=== PATIENT | female | born 1995 | race Caucasian/White ===

== ENCOUNTER 2016-02-26 16:35 | Emergency (ER) | payer SELFPAY ==
[2016-02-26 16:42] VITALS: BP 101/53; PULSE 95; TEMP 99.4; BMI 21.4
[2016-02-26] MEDS ORDERED: ONDANSETRON 4 MG/2 ML VIAL IVPB ONE (18:01)
[2016-02-26] MEDS ORDERED: SODIUM CHLORIDE 1,000 ML IV STA (18:01)
[2016-02-26] MEDS ORDERED: ONDANSETRON 4 MG/2 ML VIAL ONE (18:07)
[2016-02-26 18:12] LABS: PH,URINE >= 9.0 (4.5-8); URINE APPEARANCE Clear; URINE BILIRUBIN 1+ (NEGATIVE); URINE BLOOD Negative (NEGATIVE); URINE GLUCOSE (UA) Negative (NEGATIVE); URINE KETONE 2+ (NEGATIVE); URINE LEUK ESTERASE Negative (NEGATIVE); URINE NITRITE Negative (NEGATIVE); URINE UROBILINOGEN 0.2 E.U/dl (0.2-1.0)
[2016-02-26 18:22] LABS: URINE COLOR YELLOW; URINE PROTEIN 2+ (NEGATIVE)
[2016-02-26 18:32] LABS: BASOPHIL 0.1 % (0-2.0); EOSINOPHIL 0.7 % (0-4.5); MCHC 33.6 g/dl (32.0-36.0); MEAN CELL VOLUME 89.2 fl (80-96); NEUTROPHILS 88.4 % (42.8-82.8); PLATELET COUNT 102 K/MM3 (134-434); RDW 12.2 % (11.6-15.6); WHITE BLOOD COUNT 7.2 K/mm3 (4.0-10.0)
--- NOTE | 2016-02-26 18:40 | PDOC ---
History of Present Illness - General Chief Complaint: Vomiting/Diarrhea Stated Complaint: VOMITING, DIARRHEA Time Seen by Provider: 02/26/16 17:50 - History of Present Illness Initial Comments: 03/02/16 08:37 Chief complaint: Nausea vomiting and diarrhea History of present illness. Present symptoms since this morning. No hematemesis melena or bloody stool Review of systems: Otherwise negative Past medical history: Healthy female, no significant medical or surgical problems. No home medications Social/family history reviewed and noncontributory Physical exam: Alert and oriented 3, well-developed well-nourished, no acute distress. No retching or vomiting at present Afebrile, vital signs normal HEENT WNL Neck without bruit mass or nodes Chest clear CV regular without murmur rub or gallop. Mild tachycardia Abdomen nondistended. Bowel sounds normal. Soft without mass tenderness or organomegaly. Skin clear, no rash, adequate turgor and mucous membranes. No pallor or icterus. Impression: Mild viral gastroenteritis Plan: IV fluids, antiemetics, antidiarrheals as needed. Observe and monitor. Past History - Past Medical History Allergies/Adverse Reactions: Allergies Allergy/AdvReac Type Severity Reaction Status Date / Time No Known Allergies Allergy Verified 02/26/16 16:38 Home Medications: Ambulatory Orders Ondansetron [Zofran Odt -] 4 mg SL TID PRN #10 od.tablet 02/26/16 Other medical history: DENIES - Psycho/Social/Smoking Cessation Hx Anxiety: No Suicidal Ideation: No Smoking History: Never smoked Hx Alcohol Use: Yes (occasional) *Physical Exam - Vital Signs Last Vital Signs Temp Pulse Resp BP Pulse Ox 99.4 F 95 H 18 101/53 100 02/26/16 16:35 02/26/16 16:35 02/26/16 16:35 02/26/16 16:35 02/26/16 16:35 ED Treatment Course - LABORATORY CBC & Chemistry Diagram: 02/26/16 18:00 02/26/16 18:00 - ADDITIONAL ORDERS Additional order review: Laboratory Results 02/26/16 18:00 Urine Color Yellow Urine Appearance Clear Urine pH >= 9.0 H Ur Specific [place] 1.015 Urine Protein 2+ H Urine Glucose (UA) Negative Urine Ketones 2+ H Urine Blood Negative Urine Nitrite Negative Urine Bilirubin 1+ H Urine Urobilinogen 0.2 e.u/dl Ur Leukocyte Esterase Negative Urine HCG, Qual Negative 02/26/16 18:00 RBC 4.26 MCV 89.2 MCHC 33.6 RDW 12.2 MPV 12.0 H Neutrophils % 88.4 H Lymphocytes % 5.9 L Monocytes % 4.9 Eosinophils % 0.7 Basophils % 0.1 - Medications Given in the ED: ED Medications Discontinued Medications Generic Name Dose Route Start Last Admin Trade Name Freq PRN Reason Stop Dose Admin Ondansetron HCl 4 mg 02/26/16 18:01 02/26/16 18:05 Zofran Injection IVPB 02/26/16 18:02 4 mg ONCE ONE Administration Medical Decision Making - Medical Decision Making 02/26/16 18:56 CBC, urinalysis and urine test without significant abnormalities except for mildly depressed platelet count of 102,000. This is probably due to the viral illness. The patient has responded well to intravenous fluids and Zofran. No further nausea or vomiting. No diarrhea. Discharged in the company of her family in no pain or other distress to follow-up as needed. 03/02/16 08:39 *DC/Admit/Observation/Transfer Diagnosis at time of Disposition: Viral gastroenteritis - Discharge Dispostion Disposition: HOME Condition at time of disposition: Stable Admit: No - Prescriptions Prescriptions: Ondansetron [Zofran Odt -] 4 mg SL TID PRN #10 od.tablet PRN Reason: Nausea And/Or Vomiting - Patient Instructions Printed Discharge Instructions: DI for Viral Gastroenteritis -- Adult - Post Discharge Activity Work/School Note: Back to Work
[2016-02-26 18:47] LABS: ALBUMIN 4.1 g/dl (3.5-5.0); ALK PHOS 55 U/L (32-92); ANION GAP 6 (8-16); BILIRUBIN,TOTAL 1.7 mg/dl (0.2-1.0); CO2 24 mmol/L (22-28); CREATININE 0.6 mg/dl (0.6-1.3); GLUCOSE,RANDOM 93 mg/dl (74-106); SGOT/AST 29 U/L (10-42); SGPT/ALT 14 U/L (10-40); TOT PROT 6.6 g/dl (6.4-8.3)
[2016-02-26 19:44] LABS: URINE RBC 0-3 /hpf (0-3)
[2016-02-26 19:45] LABS: URINE MUCUS 1+
== END 2016-02-26 19:19 | disposition home or self-care (01) ==
LOC: FER 16:35
PROC: 3E033GC Introduction of Other Therapeutic Substance into Peripheral Vein, Percutaneous Approach (ICD-10-PCS; principal; 2016-02-26)
PROC: 3E0337Z Introduction of Electrolytic and Water Balance Substance into Peripheral Vein, Percutaneous Approach (ICD-10-PCS; 2016-02-26)
DX: A08.4 Viral intestinal infection, unspecified (principal)
CPT/HCPCS: 36415; 80053; 81003; 81015; 84703; 85025; 99283-25

== ENCOUNTER 2022-08-13 01:58 | Emergency (ER) | payer OTHER ==
[2022-08-13 02:14] VITALS: BP 105/73; PULSE 105; RESP 18; TEMP 98.6; BMI 23.6
[2022-08-13] MEDS ORDERED: ONDANSETRON 4 MG/2 ML VIAL IVPUSH ONE (02:26)
[2022-08-13] MEDS ORDERED: SODIUM CHLORIDE 0.9% 500 ML INFUS.BAG IV ONE (02:26)
[2022-08-13] MEDS ORDERED: ONDANSETRON 4 MG/2 ML VIAL ONE (02:33)
[2022-08-13 03:14] LABS: HEMATOCRIT 44.9 % (32.4-45.2); HEMOGLOBIN 15.2 GM/dL (10.7-15.3); MCH 30.4 pg (25.7-33.7); MCHC 33.9 g/dl (32.0-36.0); MEAN CELL VOLUME 89.7 fl (80-96); MEAN PLT VOLUME 10.6 fl (7.5-11.1); PLATELET COUNT 105 10^3/uL (134-434); RBC 5.01 M/mm3 (3.60-5.2); RDW 13.1 % (11.6-15.6); WHITE BLOOD COUNT 12.8 K/mm3 (4.0-10.0)
[2022-08-13 03:36] LABS: CALCIUM 9.4 mg/dL (8.5-10.1)
[2022-08-13 03:37] LABS: ALBUMIN 4.4 g/dl (3.4-5.0); BLOOD UREA NITROGEN 19.9 mg/dL (7-18)
[2022-08-13 03:42] LABS: BILIRUBIN,TOTAL 1.1 mg/dL (0.2-1); TOT PROT 7.8 g/dl (6.4-8.2)
[2022-08-13 04:31] LABS: ANISOCYTOSIS 0; MACROCYTOSIS 0
== END 2022-08-13 04:34 | disposition home or self-care (01) ==
LOC: JER 01:58
PROC: 3E033NZ Introduction of Analgesics, Hypnotics, Sedatives into Peripheral Vein, Percutaneous Approach (ICD-10-PCS; principal; 2022-08-13)
DX: R10.13 Epigastric pain (principal); R11.10 Vomiting, unspecified; R19.7 Diarrhea, unspecified
CPT/HCPCS: 36415; 80053; 83690; 84703; 85025; 99284-25